=== PATIENT | male | born 1975 | race American Indian/Alaskan Native ===

== ENCOUNTER 2017-05-25 01:16 | Emergency (ER) | payer SELFPAY ==
[2017-05-25 02:10] LABS: Basophils % (Auto) 0.4 % (0.0-1.8); Hematocrit 45.5 % (35.5-45.6); Hemoglobin 14.7 gm/dl (11.8-15.2); Mean Corpuscular HGB Conc 32 % (32-34); Mean Corpuscular Hemoglobin 27 pg (28-32); Mean Corpuscular Volume 84 fl (84-94); Platelet Count 212 K/mm3 (140-440); Red Blood Count 5.42 M/mm3 (3.65-5.03); Red Cell Distribution Width 14.2 % (13.2-15.2); White Blood Count 13.2 K/mm3 (4.5-11.0)
[2017-05-25 02:22] LABS: Anion Gap 17 mmol/L; BUN/Creatinine Ratio 11.81; Blood Urea Nitrogen 13 mg/dL (9-20); Calcium 8.6 mg/dL (8.4-10.2); Carbon Dioxide 24 mmol/L (22-30); Chloride 99.3 mmol/L (98-107); Glucose 165 mg/dL (75-100); Potassium 3.9 mmol/L (3.6-5.0); Sodium 136 mmol/L (137-145)
[2017-05-25] MEDS ORDERED: NACL 0.9% 1000 ML 1,000 ML IV ONE (07:05)
[2017-05-25] MEDS ORDERED: CLEOCIN 600 MG/50 mL 600 MG/50 ML BAG IV ONE (07:06)
[2017-05-25] MEDS ORDERED: VIBRAMYCIN PO ONE (07:06)
[2017-05-25] MEDS ORDERED: MORPHINE IM ONE (07:50)
[2017-05-25] MEDS ORDERED: ZOFRAN IV ONE (07:50)
[2017-05-25] MEDS ORDERED: TYLENOL PO ONE (07:52)
--- NOTE | 2017-05-25 07:52 | Emergency Department Report ---
HPI - General Chief Complaint: Skin/Abscess/Foreign Body Time Seen by Provider: 05/25/17 06:50 - HPI HPI: The patient is a 42-year-old male presents for evaluation of left arm pain. The patient reports 3 days of redness and swelling to the dorsal left forearm distal to the elbow. The patient reports associated pain, 10/10 in severity, throbbing in quality, exacerbated with movement of the arm, also of 3 day duration. The patient denies fever, penetrating trauma, paresthesia or motor deficit in the arm or hand, chills, night sweats, confusion. ED Past Medical Hx - Past Medical History Previous Medical History?: No - Surgical History Past Surgical History?: No - Social History Smoking Status: Current Every Day Smoker Substance Use Type: None - Medications Home Medications: Home Medications Medication Instructions Recorded Confirmed Last Taken Type Clindamycin [Clindamycin CAP] 300 mg PO TID #30 cap 05/25/17 Unknown Rx Doxycycline Hyclate [Doxycycline 100 mg PO BID #20 tab 05/25/17 Unknown Rx Hyclate TAB] HYDROcodone/APAP 7.5-325 [Mcdowell 1 each PO Q8HR PRN #14 tablet 05/25/17 Unknown Rx 7.5-325 mg TAB] Ibuprofen [Motrin] 800 mg PO Q8HR PRN #15 tablet 05/25/17 Unknown Rx ED Review of Systems ROS: Stated complaint: TWO INFECTIONS/LEFT ARM/GROIN AREA Other details as noted in HPI Constitutional: denies: fever ENT: denies: throat or neck pain Respiratory: denies: cough, shortness of breath Cardiovascular: denies: chest pain Endocrine: denies unexplained weight loss or gain Gastrointestinal: denies: abdominal pain, nausea Genitourinary: denies: dysuria Musculoskeletal: reports arm pain and redness denies: leg swelling Skin: denies: rash Neurological: denies: headache Hematological/Lymphatic: denies: easy bleeding or easy bruising Psych: denies sadness or hopelessness Physical Exam - Physical Exam Vital Signs: Vital Signs 05/25/17 01:22 Temperature 99.1 F Pulse Rate 115 H Respiratory 18 Rate Blood Pressure 151/91 O2 Sat by Pulse 96 Oximetry Physical Exam: General: well-nourished, well-developed, no acute distress Head: Normocephalic, atraumatic Eyes: normal sclera ENT: Mucous membranes are pale and dry Neck: trachea midline, neck supple, No neck stiffness, no cervical adenopathy Respiratory: Breath sounds equal bilaterally, no wheezing, rales, or rhonchi Cardio: S1 and S2 present, no murmurs, rubs, gallops, capillary refill is delayed Abdomen: Normoactive bowel sounds, soft abdomen, no rigidity, no guarding or rebound tenderness Musc: Approximately 5 cm x 5 cm circular area of erythema and tenderness present to the dorsal aspect of the left forearm just distal to the elbow, no crepitus or fluctuance, no left elbow tenderness, no pain in the elbow elicited with flexion or extension of the elbow, forearm compartments are soft and pliable, no signs of compartment syndrome Skin: No rash Neuro: no facial drooping, normal speech Psych: Normal affect ED Course Vital Signs 05/25/17 01:22 Temperature 99.1 F Pulse Rate 115 H Respiratory 18 Rate Blood Pressure 151/91 O2 Sat by Pulse 96 Oximetry ED Medical Decision Making - Lab Data Result diagrams: 05/25/17 01:41 05/25/17 01:41 - Medical Decision Making The patient was seen and examined by myself. The patient is placed on a teletypesetter monitor and continuous pulse ox. On initial evaluation, the patient was found to be in no distress. Evaluation orders were placed. Evaluation findings are consistent with acute cellulitis. There are no findings concerning for septic arthritis or abscess at this time. Lab results revealed mild leukocytosis of 13 and mildly elevated glucose level. The patient given 1 L normal saline fluid bolus for treatment of dehydration, IV morphine for his pain , and IV clindamycin for treatment of cellulitis. The patient was reevaluated and reported that their symptoms were markedly improved. The patient is stable for discharge with outpatient follow-up. The patient is given follow-up and return instructions. The patient expressed understanding and agreed with the plan. The patient is discharged in stable condition. Critical care attestation.: If time is entered above; I have spent that time in minutes in the direct care of this critically ill patient, excluding procedure time. ED Disposition Clinical Impression: Dehydration, Acute hyperglycemia, Cellulitis of left forearm Disposition: - TO HOME OR SELFCARE Is pt being admited?: No Does the pt Need Aspirin: No Condition: Stable Instructions: Cellulitis (ED), Diabetes Mellitus Type 2 in Adults (ED) Prescriptions: Clindamycin [Clindamycin CAP] 300 mg PO TID #30 cap Doxycycline Hyclate [Doxycycline Hyclate TAB] 100 mg PO BID #20 tab HYDROcodone/APAP 7.5-325 [Mcdowell 7.5-325 mg TAB] 1 each PO Q8HR PRN #14 tablet PRN Reason: Pain Ibuprofen [Motrin] 800 mg PO Q8HR PRN #15 tablet PRN Reason: Pain Referrals: PRIMARY CARE, [Primary Care Provider] - 3-5 Days [facility] [Outside] - 3-5 Days Time of Disposition: 07:51
[2017-05-25 11:12] VITALS: BP 134/86
== END 2017-05-25 11:11 | disposition home or self-care (01) ==
LOC: ED 01:16
DX: E86.0 Dehydration (principal); R73.9 Hyperglycemia, unspecified; L03.114 Cellulitis of left upper limb; F17.200 Nicotine dependence, unspecified, uncomplicated
CPT/HCPCS: 36415; 80048; 85025; 96365; 96372; 96375; 99284; J2270; J2405; J7030